=== PATIENT | male | born 1935 | race Caucasian/White ===

== ENCOUNTER → 2016-11-18 | Outpatient (CLI) | payer MEDICARE | END | disposition home or self-care (01) | LOC: LAB 07:56 | PROVIDERS: ATTEND Urology | DX: Z12.5 Encounter for screening for malignant neoplasm of prostate (principal); N40.1 Benign prostatic hyperplasia with lower urinary tract symptoms | CPT/HCPCS: 36415; G0103 ==

== ENCOUNTER 2017-05-12 06:42 | Inpatient (IN) | payer MEDICARE ==
[2017-05-12 07:23] LABS: ADD MAN DIFF? NO
[2017-05-12 07:26] LABS: BASO # 0.1 x10^3/uL (0.0-0.2); BASO % 1 % (0-3); EOS # 0.5 x10^3/uL (0.0-0.7); EOS % 8 % (0-3); HEMATOCRIT 42.8 % (39.0-53.0); HEMOGLOBIN 14.6 g/dL (13.0-17.5); LYMPH # 1.5 x10^3/uL (1.0-4.8); LYMPH % 25 % (24-48); MEAN CORPUSCULAR HEMOGLOBIN 34 pg (25-35); MEAN CORPUSCULAR HGB CONC 34 g/dL (31-37); MEAN CORPUSCULAR VOLUME 100 fL (79-100); MONO # 0.7 x10^3/uL (0.0-1.1); MONO % 12 % (0-9); NEUT # 3.3 x10^3uL (1.8-7.7); NEUT % 53 % (31-73); PLATELET COUNT 148 x10^3/uL (140-400); RED BLOOD COUNT 4.29 x10^6/uL (4.30-5.70); WHITE BLOOD COUNT 6.2 x10^3/uL (4.0-11.0)
[2017-05-12 07:40] LABS: ANION GAP 7 (6-14); BLOOD UREA NITROGEN 27 mg/dL (8-26); CALCIUM 9.6 mg/dL (8.5-10.1); CARBON DIOXIDE 28 mmol/L (21-32); CHLORIDE 101 mmol/L (98-107); CREATININE 1.3 mg/dL (0.7-1.3); GFR 53.3; GLUCOSE 115 mg/dL (70-99); POTASSIUM 4.3 mmol/L (3.5-5.1); SODIUM 136 mmol/L (136-145)
[2017-05-12 07:42] LABS: ALBUMIN 3.5 g/dL (3.4-5.0); ALK PHOS 71 U/L (46-116); ALT (SGPT) 24 U/L (16-63); AST (SGOT) 21 U/L (15-37); DIRECT BILIRUBIN 0.2 mg/dL (0.0-0.2); LIPASE 172 U/L (73-393); TOTAL BILIRUBIN 0.5 mg/dL (0.2-1.0); TOTAL PROTEIN 7.7 g/dL (6.4-8.2)
[2017-05-12 07:45] LABS: TROPONINI 0.107 ng/mL (0.000-0.055)
[2017-05-12 07:48] LABS: NT-PRO BNP 663 pg/mL (0-449)
[2017-05-12] MEDS: NITROGLYCERIN SUBLINGUAL 0.4 MG BOTTLE OF 25. SL ×6 (07:54→08:05)
[2017-05-12] MEDS: ASPIRIN CHEWABLE 81 MG TABLET. PO ×2 (07:54)
[2017-05-12 08:11] LABS: INR 1.2 (0.8-1.1); PARTIAL THROMBOPLASTIN TIME 29 SEC (24-38); PROTHROMBIN TIME PATIENT 14.4 SEC (11.7-14.0)
[2017-05-12] MEDS: IOHEXOL 300 MG/ML 100ML VIAL. IV ×2 (08:25)
[2017-05-12] MEDS ORDERED: CONTRAST GIVEN MC ×2 (08:30)
[2017-05-12] MEDS: IV NORMAL SALINE 1000ML BAG 1,000 ML IV ×6 (08:36→22:30)
[2017-05-12] MEDS ORDERED: MORPHINE SULFATE 2 MG/ML DISP.SYRIN. IV ×2 (09:30)
[2017-05-12] MEDS ORDERED: ONDANSETRON PF 4 MG/2 ML VIAL. IV ×4 (09:30→13:00)
[2017-05-12] MEDS ORDERED: NITROGLYCERIN PREMIX 250 ML IV ×2 (09:33)
[2017-05-12] MEDS ORDERED: HEPARIN for IV BOLUS 10,000 UNIT/10 ML VIAL. ×4 (09:33→10:51)
[2017-05-12] MEDS: HEPARIN for IV BOLUS 10,000 UNIT/10 ML VIAL. IV ×2 (09:37)
[2017-05-12] MEDS: NITROGLYCERIN PREMIX 250 ML IV ×4 (09:39→14:49)
[2017-05-12] MEDS ORDERED: HEPARIN for IV BOLUS 10,000 UNIT/10 ML VIAL. IV ×2 (09:45)
[2017-05-12] MEDS: HEPARIN 25,000UTS/500ML PREMIX 500 ML IV ×2 (09:50)
[2017-05-12] MEDS ORDERED: LIDOCAINE 1% Multi-Dose 20 ML VIAL. ×2 (10:19)
[2017-05-12] MEDS ORDERED: IOHEXOL 300 MG/ML 100ML VIAL. ×2 (10:19)
[2017-05-12] MEDS: LABETALOL 20 MG/4 ML DISP.SYRIN. IVP ×2 (10:30)
[2017-05-12] MEDS ORDERED: LABETALOL 20 MG/4 ML DISP.SYRIN. IVP ×2 (10:45)
[2017-05-12] MEDS ORDERED: VERAPAMIL 5 MG/2 ML VIAL. ×2 (10:51)
[2017-05-12] MEDS ORDERED: NITROGLYCERIN 200 MCG/2 ML SYRINGE FOR CATH/VASC LAB. ×2 (10:51)
[2017-05-12] MEDS ORDERED: MIDAZOLAM HCL/PF 2 MG/2 ML VIAL. ×2 (11:03)
[2017-05-12] MEDS ORDERED: fentaNYL PF VIAL 100 MCG/2 ML VIAL ×2 (11:03)
[2017-05-12] MEDS: VERAPAMIL 5 MG/2 ML VIAL. IART ×2 (11:15)
[2017-05-12] MEDS: fentaNYL PF VIAL 100 MCG/2 ML VIAL IV ×2 (11:15)
[2017-05-12] MEDS: IOHEXOL 300 MG/ML 50 ML VIAL. IART ×2 (11:15)
[2017-05-12] MEDS: NITROGLYCERIN 200 MCG/2 ML SYRINGE FOR CATH/VASC LAB. IART ×2 (11:15)
[2017-05-12] MEDS: LIDOCAINE 2% 20 ML VIAL. IJ ×2 (11:15)
[2017-05-12] MEDS: HEPARIN for IV BOLUS 10,000 UNIT/10 ML VIAL. IART ×2 (11:15)
[2017-05-12] MEDS: MIDAZOLAM HCL/PF 2 MG/2 ML VIAL. IV ×2 (11:15)
[2017-05-12 11:34] LABS: CHOLESTEROL 132 mg/dL (0-200); CHOLESTEROL/HDL RATIO 3.3; HDLC 40 mg/dL (40-60); LDLC 68 mg/dL (0-100); NON-HDL CHOLESTEROL 92 mg/dL (0-129); TRIGLYCERIDES 119 mg/dL (0-150); VLDLC 24 mg/dL (0-40)
[2017-05-12 11:42] LABS: THYROID STIM HORMONE (TSH) 1.702 uIU/mL (0.358-3.74)
[2017-05-12] MEDS ORDERED: HYDROcodone/APAP 5/325MG 1 TAB TABLET PO ×2 (13:00)
[2017-05-12] MEDS ORDERED: NITROGLYCERIN SUBLINGUAL 0.4 MG BOTTLE OF 25. SL ×2 (14:00)
[2017-05-12] MEDS: CHOLECALCIFEROL (VITAMIN D3) 1,000 UNIT TABLET PO ×2 (14:39)
[2017-05-12] MEDS: ASPIRIN ENTERIC COATED 81 MG TABLET.DR. PO ×2 (14:39)
[2017-05-12] MEDS: METOPROLOL TART IMMED RELEASE 25 MG TABLET. PO ×4 (14:40→21:08)
[2017-05-12] MEDS: CALCIUM CARB/VIT D3 500/200 TABLET. PO ×2 (14:40)
[2017-05-12] MEDS: TAMSULOSIN 0.4 MG CAP.ER.24H. PO ×2 (14:40)
[2017-05-12] MEDS: amLODIPine BESYLATE 2.5 MG TABLET PO ×2 (14:40)
[2017-05-12] MEDS: OMEGA-3 FATTY ACIDS/FISH OIL 1,000 MG CAPSULE. PO ×2 (14:40)
[2017-05-12] MEDS: FAMOTIDINE 20 MG TABLET. PO ×4 (14:41→21:08)
[2017-05-12] MEDS: MULTIVITAMIN with MINERAL TABLET. PO ×2 (14:41)
[2017-05-12] MEDS: ISOSORBIDE MONONITRATE ER 30 MG TAB.ER.24H PO ×2 (14:41)
[2017-05-12] MEDS: LOSARTAN POTASSIUM 25 MG TABLET. PO ×2 (14:41)
[2017-05-12] MEDS: IV 1/2 NORMAL SALINE 1,000 ML IV ×2 (14:49)
[2017-05-12 15:30] LABS: TROPONINI 11.302 ng/mL (0.000-0.055)
[2017-05-12 15:35] LABS: UNFRACTIONATED HEPARIN TESTING 0.68 IU/mL (0.30-0.70)
[2017-05-12 20:18] LABS: MRSA BY PCR Negative (Negative)
[2017-05-12] MEDS: TEMAZEPAM 15 MG CAPSULE PO ×2 (21:08)
[2017-05-12] MEDS: NIACIN ER 500 MG TABLET.ER PO ×2 (21:12)
[2017-05-12 22:05] LABS: TROPONINI 27.963 ng/mL (0.000-0.055)
[2017-05-13] MEDS: ACETAMINOPHEN 500 MG TABLET PO ×6 (00:06→18:26)
[2017-05-13 05:03] LABS: ADD MAN DIFF? NO
[2017-05-13 05:33] LABS: BASO # 0.1 x10^3/uL (0.0-0.2); BASO % 1 % (0-3); EOS # 0.5 x10^3/uL (0.0-0.7); EOS % 6 % (0-3); HEMOGLOBIN 12.7 g/dL (13.0-17.5); LYMPH # 2.1 x10^3/uL (1.0-4.8); LYMPH % 25 % (24-48); MEAN CORPUSCULAR HEMOGLOBIN 35 pg (25-35); MEAN CORPUSCULAR HGB CONC 34 g/dL (31-37); MEAN CORPUSCULAR VOLUME 100 fL (79-100); MONO # 1.1 x10^3/uL (0.0-1.1); MONO % 13 % (0-9); NEUT # 4.8 x10^3uL (1.8-7.7); NEUT % 56 % (31-73); PLATELET COUNT 125 x10^3/uL (140-400); RED BLOOD COUNT 3.69 x10^6/uL (4.30-5.70); RED CELL DISTRIBUTION WIDTH 12.9 % (11.5-14.5); WHITE BLOOD COUNT 8.5 x10^3/uL (4.0-11.0)
[2017-05-13 05:49] LABS: ANION GAP 7 (6-14); BLOOD UREA NITROGEN 21 mg/dL (8-26); CARBON DIOXIDE 26 mmol/L (21-32); CHLORIDE 101 mmol/L (98-107); CREATININE 1.1 mg/dL (0.7-1.3); GFR 64.6; GLUCOSE 110 mg/dL (70-99); POTASSIUM 4.5 mmol/L (3.5-5.1); SODIUM 134 mmol/L (136-145)
[2017-05-13 06:13] LABS: UNFRACTIONATED HEPARIN TESTING 0.34 IU/mL (0.30-0.70)
[2017-05-13] MEDS: ANTI-COAG MONITOR BY PHARMACY. MC ×2 (07:26)
[2017-05-13] MEDS: CHOLECALCIFEROL (VITAMIN D3) 1,000 UNIT TABLET PO ×2 (08:22)
[2017-05-13] MEDS: ASPIRIN ENTERIC COATED 81 MG TABLET.DR. PO ×2 (08:22)
[2017-05-13] MEDS: IV 1/2 NORMAL SALINE 1,000 ML IV ×4 (08:22→21:03)
[2017-05-13] MEDS: amLODIPine BESYLATE 2.5 MG TABLET PO ×2 (08:23)
[2017-05-13] MEDS: OMEGA-3 FATTY ACIDS/FISH OIL 1,000 MG CAPSULE. PO ×2 (08:23)
[2017-05-13] MEDS: TAMSULOSIN 0.4 MG CAP.ER.24H. PO ×2 (08:23)
[2017-05-13] MEDS: MULTIVITAMIN with MINERAL TABLET. PO ×2 (08:23)
[2017-05-13] MEDS: LOSARTAN POTASSIUM 25 MG TABLET. PO ×2 (08:23)
[2017-05-13] MEDS: DOCUSATE SODIUM 100 MG CAPSULE. PO ×2 (08:24)
[2017-05-13] MEDS: METOPROLOL TART IMMED RELEASE 25 MG TABLET. PO ×4 (08:24→20:23)
[2017-05-13] MEDS: CALCIUM CARB/VIT D3 500/200 TABLET. PO ×2 (08:25)
[2017-05-13] MEDS: FAMOTIDINE 20 MG TABLET. PO ×4 (08:25→20:21)
[2017-05-13] MEDS: ISOSORBIDE MONONITRATE ER 30 MG TAB.ER.24H PO ×2 (09:00)
[2017-05-13] MEDS ORDERED: NON FORMULARY ITEM (Mg Trisilicate/Alh/Nahco3/Aa (Gaviscon 80-14.2 Mg Tab Chew) 1 EACH) PO ×2 (09:00)
[2017-05-13] MEDS: HEPARIN 25,000UTS/500ML PREMIX 500 ML IV ×2 (11:22)
[2017-05-13] MEDS: CLOPIDOGREL BISULFATE 75 MG TABLET PO ×2 (17:19)
[2017-05-13] MEDS: ATORVASTATIN CALCIUM 40 MG TABLET. PO ×2 (20:21)
[2017-05-14 05:38] LABS: UNFRACTIONATED HEPARIN TESTING 0.24 IU/mL (0.30-0.70)
[2017-05-14] MEDS: ANTI-COAG MONITOR BY PHARMACY. MC ×2 (08:21)
[2017-05-14] MEDS: TAMSULOSIN 0.4 MG CAP.ER.24H. PO ×2 (08:56)
[2017-05-14] MEDS: CHOLECALCIFEROL (VITAMIN D3) 1,000 UNIT TABLET PO ×2 (08:56)
[2017-05-14] MEDS: ISOSORBIDE MONONITRATE ER 30 MG TAB.ER.24H PO ×2 (08:57)
[2017-05-14] MEDS: CLOPIDOGREL BISULFATE 75 MG TABLET PO ×2 (08:57)
[2017-05-14] MEDS: DOCUSATE SODIUM 100 MG CAPSULE. PO ×2 (08:57)
[2017-05-14] MEDS: FAMOTIDINE 20 MG TABLET. PO ×2 (08:57)
[2017-05-14] MEDS: MULTIVITAMIN with MINERAL TABLET. PO ×2 (08:57)
[2017-05-14] MEDS: METOPROLOL TART IMMED RELEASE 25 MG TABLET. PO ×2 (08:57)
[2017-05-14] MEDS: amLODIPine BESYLATE 2.5 MG TABLET PO ×2 (08:58)
[2017-05-14] MEDS: LOSARTAN POTASSIUM 25 MG TABLET. PO ×2 (08:58)
[2017-05-14] MEDS: CALCIUM CARB/VIT D3 500/200 TABLET. PO ×2 (08:58)
[2017-05-14] MEDS: ASPIRIN ENTERIC COATED 81 MG TABLET.DR. PO ×2 (09:00)
[2017-05-14 12:21] LABS: TROPONINI 5.771 ng/mL (0.000-0.055)
[2017-05-14] MEDS: IV 1/2 NORMAL SALINE 1,000 ML IV ×2 (13:43)
== END 2017-05-14 17:01 | disposition home or self-care (01) | DRG 280 ==
LOC: 2 SOUTH 05-13 15:01 → ER 06:42 → 2 NORTH 09:19 → 1 WEST ICU 12:06
PROC: 4A023N7 Measurement of Cardiac Sampling and Pressure, Left Heart, Percutaneous Approach (ICD-10-PCS; principal; 2017-05-12)
PROC: B2111ZZ Fluoroscopy of Multiple Coronary Arteries using Low Osmolar Contrast (ICD-10-PCS; 2017-05-12)
PROC: B2151ZZ Fluoroscopy of Left Heart using Low Osmolar Contrast (ICD-10-PCS; 2017-05-12)
DX: I21.4 Non-ST elevation (NSTEMI) myocardial infarction (principal); I50.21 Acute systolic (congestive) heart failure; I25.110 Atherosclerotic heart disease of native coronary artery with unstable angina pectoris; I11.0 Hypertensive heart disease with heart failure; E78.00 Pure hypercholesterolemia, unspecified; E78.5 Hyperlipidemia, unspecified; G47.00 Insomnia, unspecified; K21.9 Gastro-esophageal reflux disease without esophagitis; M19.90 Unspecified osteoarthritis, unspecified site; K59.00 Constipation, unspecified; Z82.49 Family history of ischemic heart disease and other diseases of the circulatory system; Z90.49 Acquired absence of other specified parts of digestive tract; Z95.5 Presence of coronary angioplasty implant and graft; Z98.49 Cataract extraction status, unspecified eye; Z88.1 Allergy status to other antibiotic agents; Z88.8 Allergy status to other drugs, medicaments and biological substances
CPT/HCPCS: 36415; 71045; 71275; 74174; 80048; 80061; 80076; 83690; 83880; 84443; 84484; 85025; 85520; 85610; 85730; 87641; 93005; 93306; 93458; 97165-GO; 99285; 99285-25; C1769; C1892; J1644; J2250; J3010; J3490; J7030; Q9967

== ENCOUNTER 2017-06-14 06:29 | Inpatient (IN) | payer MEDICARE ==
[2017-06-14] MEDS: IV NORMAL SALINE 1000ML BAG 1,000 ML IV ×3 (07:09→16:11)
[2017-06-14] MEDS ORDERED: NITROGLYCERIN SUBLINGUAL 0.4 MG BOTTLE OF 25. SL (07:10)
[2017-06-14] MEDS: NITROGLYCERIN SUBLINGUAL 0.4 MG BOTTLE OF 25. SL ×2 (07:14→07:32)
[2017-06-14 07:16] LABS: ADD MAN DIFF? NO
[2017-06-14 07:22] LABS: BASO # 0.1 x10^3/uL (0.0-0.2); BASO % 1 % (0-3); EOS # 0.3 x10^3/uL (0.0-0.7); EOS % 4 % (0-3); HEMATOCRIT 40.7 % (39.0-53.0); HEMOGLOBIN 13.9 g/dL (13.0-17.5); LYMPH # 1.7 x10^3/uL (1.0-4.8); LYMPH % 23 % (24-48); MEAN CORPUSCULAR HEMOGLOBIN 34 pg (25-35); MEAN CORPUSCULAR HGB CONC 34 g/dL (31-37); MEAN CORPUSCULAR VOLUME 99 fL (79-100); MONO # 1.1 x10^3/uL (0.0-1.1); MONO % 14 % (0-9); NEUT # 4.4 x10^3uL (1.8-7.7); NEUT % 59 % (31-73); PLATELET COUNT 196 x10^3/uL (140-400); RED BLOOD COUNT 4.11 x10^6/uL (4.30-5.70); RED CELL DISTRIBUTION WIDTH 13.1 % (11.5-14.5); WHITE BLOOD COUNT 7.5 x10^3/uL (4.0-11.0)
[2017-06-14 07:31] LABS: ANION GAP 13 (6-14); BLOOD UREA NITROGEN 23 mg/dL (8-26); BUN/CREATININE RATIO 18 (6-20); CALCIUM 9.5 mg/dL (8.5-10.1); CARBON DIOXIDE 21 mmol/L (21-32); CHLORIDE 98 mmol/L (98-107); CREATININE 1.3 mg/dL (0.7-1.3); GFR 53.1; GLUCOSE 128 mg/dL (70-99); SODIUM 132 mmol/L (136-145)
[2017-06-14 07:32] LABS: INR 1.1 (0.8-1.1); PROTHROMBIN TIME PATIENT 13.6 SEC (11.7-14.0)
[2017-06-14 07:37] LABS: ALBUMIN 3.7 g/dL (3.4-5.0); ALK PHOS 78 U/L (46-116); ALT (SGPT) 26 U/L (16-63); AST (SGOT) 22 U/L (15-37); MAGNESIUM 2.1 mg/dL (1.8-2.4); TOTAL BILIRUBIN 0.5 mg/dL (0.2-1.0); TOTAL PROTEIN 7.4 g/dL (6.4-8.2)
[2017-06-14 07:42] LABS: TROPONINI 0.177 ng/mL (0.000-0.055)
[2017-06-14 07:44] LABS: CKMB INDEX 2.8 % (0-4); CKMB MASS 2.6 ng/mL (0.0-3.6); CREATINE KINASE 93 U/L (39-308)
[2017-06-14 07:44] LABS: NT-PRO BNP 1015 pg/mL (0-449)
[2017-06-14] MEDS ORDERED: fentaNYL PF VIAL 100 MCG/2 ML VIAL IV (08:15)
[2017-06-14] MEDS ORDERED: ONDANSETRON PF 4 MG/2 ML VIAL. IV (08:15)
[2017-06-14 11:45] LABS: TROPONINI 6.851 ng/mL (0.000-0.055)
[2017-06-14] MEDS: FAMOTIDINE 20 MG TABLET. PO (12:58)
[2017-06-14] MEDS: ASPIRIN ENTERIC COATED 81 MG TABLET.DR. PO (12:58)
[2017-06-14] MEDS: CLOPIDOGREL BISULFATE 75 MG TABLET PO (12:58)
[2017-06-14] MEDS: LOSARTAN POTASSIUM 25 MG TABLET. PO (12:59)
[2017-06-14] MEDS: METOPROLOL TART IMMED RELEASE 25 MG TABLET. PO ×2 (13:00→21:30)
[2017-06-14] MEDS: amLODIPine BESYLATE 2.5 MG TABLET PO (13:00)
[2017-06-14] MEDS ORDERED: CALCIUM CARBONATE 500 MG TAB.CHEW PO (14:30)
[2017-06-14 15:27] LABS: TROPONINI 17.799 ng/mL (0.000-0.055)
[2017-06-14 16:51] LABS: CKMB INDEX 15.9 % (0-4); CKMB MASS 56.7 ng/mL (0.0-3.6); CREATINE KINASE 357 U/L (39-308)
[2017-06-14] MEDS: ATORVASTATIN CALCIUM 40 MG TABLET. PO (21:29)
[2017-06-14] MEDS: RANOLAZINE 500 MG TAB.ER.12H PO (21:29)
[2017-06-14] MEDS: POLYETHYLENE GLYCOL 3350 17 GM PACKET. PO (21:30)
[2017-06-14] MEDS: PANTOPRAZOLE 40 MG TABLET.DR. PO (21:30)
[2017-06-14] MEDS: ACETAMINOPHEN 325 MG TABLET. PO (21:41)
[2017-06-15 05:29] LABS: ADD MAN DIFF? NO
[2017-06-15 05:33] LABS: BASO # 0.1 x10^3/uL (0.0-0.2); BASO % 1 % (0-3); EOS # 0.4 x10^3/uL (0.0-0.7); EOS % 6 % (0-3); HEMATOCRIT 38.5 % (39.0-53.0); HEMOGLOBIN 13.4 g/dL (13.0-17.5); LYMPH # 2.3 x10^3/uL (1.0-4.8); LYMPH % 34 % (24-48); MEAN CORPUSCULAR HEMOGLOBIN 35 pg (25-35); MEAN CORPUSCULAR HGB CONC 35 g/dL (31-37); MEAN CORPUSCULAR VOLUME 99 fL (79-100); MONO % 16 % (0-9); NEUT # 2.9 x10^3uL (1.8-7.7); NEUT % 43 % (31-73); PLATELET COUNT 173 x10^3/uL (140-400); RED BLOOD COUNT 3.89 x10^6/uL (4.30-5.70); RED CELL DISTRIBUTION WIDTH 13.3 % (11.5-14.5); WHITE BLOOD COUNT 6.6 x10^3/uL (4.0-11.0)
[2017-06-15 06:02] LABS: ANION GAP 4 (6-14); BLOOD UREA NITROGEN 18 mg/dL (8-26); CARBON DIOXIDE 29 mmol/L (21-32); CHLORIDE 101 mmol/L (98-107); CREATININE 1.3 mg/dL (0.7-1.3); GFR 53.1; GLUCOSE 99 mg/dL (70-99); POTASSIUM 4.7 mmol/L (3.5-5.1); SODIUM 134 mmol/L (136-145)
[2017-06-15] MEDS: RANOLAZINE 500 MG TAB.ER.12H PO (08:20)
[2017-06-15] MEDS: amLODIPine BESYLATE 2.5 MG TABLET PO (08:20)
[2017-06-15] MEDS: METOPROLOL TART IMMED RELEASE 25 MG TABLET. PO (08:21)
[2017-06-15] MEDS: LOSARTAN POTASSIUM 25 MG TABLET. PO (08:21)
[2017-06-15] MEDS: CLOPIDOGREL BISULFATE 75 MG TABLET PO (08:21)
[2017-06-15] MEDS: POLYETHYLENE GLYCOL 3350 17 GM PACKET. PO (08:21)
[2017-06-15] MEDS: ASPIRIN ENTERIC COATED 81 MG TABLET.DR. PO (08:21)
[2017-06-15] MEDS: PANTOPRAZOLE 40 MG TABLET.DR. PO (08:21)
[2017-06-15] MEDS: ANTI-COAG MONITOR BY PHARMACY. MC (10:56)
== END 2017-06-15 15:00 | disposition home or self-care (01) | DRG 282 ==
LOC: ER 06:29 → 2 SOUTH 08:04
DX: I21.4 Non-ST elevation (NSTEMI) myocardial infarction (principal); I08.1 Rheumatic disorders of both mitral and tricuspid valves; E78.5 Hyperlipidemia, unspecified; I10 Essential (primary) hypertension; I25.10 Atherosclerotic heart disease of native coronary artery without angina pectoris; K21.9 Gastro-esophageal reflux disease without esophagitis; K40.90 Unilateral inguinal hernia, without obstruction or gangrene, not specified as recurrent; K57.30 Diverticulosis of large intestine without perforation or abscess without bleeding; K82.8 Other specified diseases of gallbladder; N40.0 Benign prostatic hyperplasia without lower urinary tract symptoms; Z82.49 Family history of ischemic heart disease and other diseases of the circulatory system; Z95.5 Presence of coronary angioplasty implant and graft; G47.00 Insomnia, unspecified; M19.90 Unspecified osteoarthritis, unspecified site; Z90.49 Acquired absence of other specified parts of digestive tract
CPT/HCPCS: 36415; 71045; 76705; 80048; 80053; 82553; 83735; 83880; 84484; 85025; 85610; 93005; 93308; 94618; 99285; 99285-25; J1650; J7030

== ENCOUNTER → 2020-09-18 | Outpatient (CLI) | payer MEDICARE ==
[2017-06-15 11:28] VITALS: BP 130/61
[~2020-09-18] MED LIST: AMLO2.5T5 PO; ASCO100019 PO; ASPI-886 PO; ATOR40TA59 PO; CALC-496 PO; CHOL10003 PO; CLOP75TA PO; FAMO20TA5 PO; ISOS20TA6 PO; LOSA25TA54 PO; METO25TA4 PO; MG T1TAB PO; MULT-445 PO; MV-M1TAB8 PO; NADO20TA12 PO; NIAC500T PO; NITR0.4T22 SL; OMEG1CAP38 PO; OMEP40CA7 PO; RANO500T2 PO; SIME125C85 PO; TAMS0.4C2 PO; TEMA15CA PO
--- NOTE | 2020-09-18 09:23 | KCIC ---
PQRS Compliance Statement: One or more of the following individualized dose reduction techniques were utilized for this examinat ion: 1. Automated exposure control 2. Adjustment of the mA and/or kV according to patient size 3. Use of iterative reconstruction technique CT head without contrast 09/18/2020 8:31 AM INDICATION: Cognitive impairment COMPARISON: None available TECHNIQUE: Multiple axial CT images of the head were obtained from skull base through the vertex with out intravenous contrast. FINDINGS: Head: Ventricles, sulci and basal cisterns are prominent compatible with mild generalized cerebral volume l oss. Low-attenuation in the periventricular white matter is suggestive of chronic small vessel ischem ic changes. There is no hydrocephalus. Celestin-white matter differentiation is normal. There is no acute intracranial hemorrhage. There is no mass, mass effect or midline shift. Posterior fossa is normal i n appearance. Visualized portions of the orbits are normal at the exception of bilateral lens replacement. Paranasa l sinuses are well aerated. Mastoid air cells are well aerated. Scalp and calvaria are normal. IMPRESSION: No acute intracranial hemorrhage. Mild likely age-related cerebral volume loss. Low-attenuation in the periventricular white matter is suggestive of chronic small vessel ischemic changes. Electronically signed by: Ivana Huntley MD (09/18/2020 9:21 AM) [id number]
== END ==
LOC: KCIC CT 08:29
PROVIDERS: ATTEND Family Medicine
DX: G31.84 Mild cognitive impairment of uncertain or unknown etiology (principal)
CPT/HCPCS: 70450